=== PATIENT | female | born 1970 | race American Indian/Alaskan Native ===

== ENCOUNTER 2017-05-01 06:21 | Outpatient (CLI) | payer BC ==
--- NOTE | 2017-05-01 15:24 | Mammography Report ---
BILATERAL DIGITAL SCREENING MAMMOGRAM with CAD and WITH 3-D TOMOSYNTHESIS: 05/01/17 CLINICAL: Routine screening. COMPARISON:10/11/15 and 04/15/14 FINDINGS: There are bilateral scattered fibroglandular densities.Bilateral asymmetries on the tomosynthesis views require additional imaging. They are not identified on conventional views. No mass, architectural distortion or suspicious calcifications. IMPRESSION: Bilateral parenchymal asymmetries requiring additional imaging. BI-RADS CATEGORY: 0--Needs Additional Imaging RECOMMENDATION: Recall for bilateral lateralmedial views and bilateral breast ultrasound. COMMENT: Patient follow-up letters are generated by our [employer] application.
== END 2017-05-01 06:22 | disposition home or self-care (01) ==
LOC: MAMMO 06:21
PROVIDERS: ATTEND Internal Medicine
DX: Z12.31 Encounter for screening mammogram for malignant neoplasm of breast (principal)
CPT/HCPCS: 77063; G0202; 77067

== ENCOUNTER 2017-05-14 09:55 | Outpatient (CLI) | payer BC ==
--- NOTE | 2017-05-14 13:30 | Ultrasound Report ---
Right mammogram and bilateral breast ultrasound: The patient is recalled for bilateral nodularity identified on recent total mammogram. Whole breast lateral compression images are obtained as requested. Breast pattern is symmetric and that of intermediate fibroglandular density with no focal nodules identified and no significant change compared to the 2-D images obtained with the total mammogram. Bilateral whole breast ultrasound demonstrates multiple subcentimeter sized circumscribed hypodensities and echo lucencies bilaterally. There are approximately 8 identified in the right breast and 5 in the left breast. No suspicious characteristics are identified. No completely solid masses are noted. Impression: No significant mammogram findings. The ultrasound findings all have benign characteristics. Recommendation: Annual mammogram followup. BI-RADS CATEGORY: 2 = Benign ACR BI-RADS MAMMOGRAPHIC CODES: 0 = Needs additional imaging evaluation; 1 = Negative; 2 = Benign; 3 = Probably benign; 4 = Suspicious; 5 = Malignant; 6 = Known biopsy-proven malignancy COMMENT: 1. Dense breast tissue, i.e., adenosis, fibrocystic changes, etc., may obscure an underlying neoplasm. 2. Approximately 10% of cancers are not detected with mammography. 3. A negative mammography report should not delay biopsy if a clinically suspicious mass is present.
== END 2017-05-14 09:56 | disposition home or self-care (01) ==
LOC: MAMMO 09:55
PROVIDERS: ATTEND Nurse Practitioner Family
DX: R92.8 Other abnormal and inconclusive findings on diagnostic imaging of breast (principal)
CPT/HCPCS: 77066

== ENCOUNTER 2017-06-05 07:27 | Outpatient (CLI) | payer BC ==
--- NOTE | 2017-06-05 12:52 | Ultrasound Report ---
ULTRASOUND TRANSVAGINAL HISTORY: Intramural labral myoma of the uterus. COMPARISON: 06/12/15. TECHNIQUE: Transabdominal and transvaginal ultrasound with color doppler interrogation. FINDINGS: Uterus: Anteverted. The uterus measures 13.3 x 9.6 x 9.9 cm. 4 fibroids are identified on today's exam. A large noncalcified submucosal fibroid in the uterine fundus measures 4.4 x 4.6 cm. A 2.7 x 2.0 cm intramural fibroid is identified in the posterior wall. A 4.7 x 3.9 cm submucosal fibroid is identified in the right lateral wall. A 6.2 x 4.3 cm exophytic fibroid is identified from the left lateral wall. Endometrium: The endometrium is displaced by the uterine fibroids but appears normal thickness measuring 8.5 mm. Right ovary: 4.1 x 1.6 x 1.9 cm. There are 2 complex cysts in the right ovary measuring 1.5 cm and 1.8 cm. Left ovary: Not visualized. No pelvic fluid or mass is identified. Normal color doppler interrogation. IMPRESSION: Uterine fibroid disease as described above. Complex cysts in the right ovary.
== END 2017-06-05 07:28 | disposition home or self-care (01) ==
LOC: US 07:27
PROVIDERS: ATTEND Obstetrics & Gynecology
DX: D25.1 Intramural leiomyoma of uterus (principal); D25.0 Submucous leiomyoma of uterus; N83.291 Other ovarian cyst, right side
CPT/HCPCS: 76830

== ENCOUNTER 2018-02-15 08:08 | Inpatient (IN) | payer BC ==
--- NOTE | 2018-02-15 09:18 | XRay Report ---
FINAL REPORT EXAM: XR CHEST ROUTINE 2V HISTORY: chest pain TECHNIQUE: Chest, 2 views PRIORS: None. FINDINGS: The heart size is normal. Mediastinal contours are normal. Pulmonary vasculature is not congested. The lungs are clear. There are no pleural effusion seen. There is no evidence of pneumothorax. IMPRESSION: There is no acute abnormality identified.
[2018-02-15 10:31] LABS: Basophils % (Auto) 0.6 % (0.0-1.8); Eosinophils # (Auto) 0.1 K/mm3 (0.0-0.4); Eosinophils % (Auto) 1.3 % (0.0-4.3); Hematocrit 31.9 % (30.3-42.9); Hemoglobin 9.9 gm/dl (10.1-14.3); Lymphocytes # (Auto) 1.9 K/mm3 (1.2-5.4); Lymphocytes % (Auto) 25.2 % (13.4-35.0); Mean Corpuscular HGB Conc 31 % (30-34); Mean Corpuscular Volume 71 fl (79-97); Monocytes # (Auto) 0.8 K/mm3 (0.0-0.8); Monocytes % (Auto) 10.4 % (0.0-7.3); Platelet Count 328 K/mm3 (140-440); Red Blood Count 4.47 M/mm3 (3.65-5.03); Red Cell Distribution Width 18.6 % (13.2-15.2)
[2018-02-15 10:32] LABS: Mean Corpuscular Hemoglobin 22 pg (28-32)
[2018-02-15 10:44] LABS: INR 0.94 (0.87-1.13)
[2018-02-15 10:45] LABS: Partial Thromboplastin Time 24.7 Sec. (24.2-36.6)
[2018-02-15 10:54] LABS: Creatine Kinase MB 2.2 ng/mL (0.0-4.0)
[2018-02-15 10:57] LABS: Alanine Aminotransferase 36 units/L (7-56); Albumin 4.1 g/dL (3.9-5); BUN/Creatinine Ratio 28; Blood Urea Nitrogen 11 mg/dL (7-17); Calcium 8.9 mg/dL (8.4-10.2); Hemolysis Index 3
[2018-02-15 10:59] LABS: Bilirubin,Direct < 0.2 mg/dL (0-0.2)
[2018-02-15] MEDS ORDERED: ZOFRAN IV PRN (12:31)
[2018-02-15] MEDS ORDERED: SODIUM CHLORIDE FLUSH SYRINGE 10 ML IV PRN ×2 (12:31)
[2018-02-15] MEDS ORDERED: MORPHINE IV PRN (12:31)
[2018-02-15] MEDS ORDERED: BABY ASPIRIN PO STA (12:31)
[2018-02-15] MEDS ORDERED: NITROSTAT SL PRN (12:31)
[2018-02-15] MEDS ORDERED: TYLENOL PO PRN (12:31)
[2018-02-15] MEDS ORDERED: PROVENTIL IH PRN (12:31)
--- NOTE | 2018-02-15 12:36 | Emergency Department Report ---
ED General Adult HPI - General Chief complaint: Chest Pain Stated complaint: TIGHTNESS OF CHEST Time Seen by Provider: 02/15/18 09:31 Source: patient Mode of arrival: Ambulatory Limitations: No Limitations - History of Present Illness Initial comments: 48-year-old female with no prior history of similar events. Patient stated that yesterday she was eating chicken. Shortly thereafter she passed out. Her mother heard a thud and came from another room. She found her on the floor breathing heavy. She presumed that she might be choking so she rolled her over and rested her back. The patient did vomit some yellow material. They do not report dislodging a food bolus per se. Subsequently the patient complains of heaviness in her anterior/substernal chest with somewhat radiates to her throat. She states that she does not remember choking specifically. She has never had a prior syncopal episode or evaluation for chest pain. She denies family history of coronary artery disease or venous thromboembolism. -: Sudden Location: chest Radiation: neck Quality: other (heaviness) Consistency: constant Improves with: none Worsens with: none Associated Symptoms: denies other symptoms - Related Data Allergies Allergy/AdvReac Type Severity Reaction Status Date / Time No Known Allergies Allergy Unverified 03/04/14 07:06 ED Review of Systems ROS: Stated complaint: TIGHTNESS OF CHEST Other details as noted in HPI Constitutional: denies: chills, fever Eyes: denies: eye pain, eye discharge, vision change ENT: denies: ear pain, throat pain Respiratory: denies: cough, shortness of breath, wheezing Cardiovascular: chest pain, syncope. denies: palpitations Endocrine: no symptoms reported Gastrointestinal: denies: abdominal pain, nausea, diarrhea Genitourinary: denies: urgency, dysuria, discharge Musculoskeletal: denies: back pain, joint swelling, arthralgia Skin: denies: rash, lesions Neurological: denies: headache, weakness, paresthesias Psychiatric: denies: anxiety, depression Hematological/Lymphatic: denies: easy bleeding, easy bruising ED Past Medical Hx - Past Medical History Hx Hypertension: Yes - Surgical History Hx Cholecystectomy: Yes - Social History Smoking Status: Never Smoker Substance Use Type: Alcohol ED Physical Exam - General Limitations: No Limitations General appearance: alert, in no apparent distress - Head Head exam: Present: atraumatic, normocephalic - Eye Eye exam: Present: normal appearance. Absent: scleral icterus - ENT ENT exam: Present: mucous membranes moist - Neck Neck exam: Present: normal inspection. Absent: tenderness, meningismus - Respiratory Respiratory exam: Present: normal lung sounds bilaterally. Absent: respiratory distress - Cardiovascular Cardiovascular Exam: Present: regular rate, normal rhythm. Absent: systolic murmur, diastolic murmur, rubs, gallop - GI/Abdominal GI/Abdominal exam: Present: soft, normal bowel sounds. Absent: distended, tenderness, guarding, rebound, rigid - Extremities Exam Extremities exam: Present: normal inspection, normal capillary refill. Absent: joint swelling, calf tenderness - Back Exam Back exam: Present: normal inspection - Neurological Exam Neurological exam: Present: alert, oriented X3, CN II-XII intact. Absent: motor sensory deficit - Psychiatric Psychiatric exam: Present: normal affect, normal mood - Skin Skin exam: Present: warm, dry, intact, normal color. Absent: rash ED Course Vital Signs 02/15/18 02/15/18 02/15/18 08:23 08:39 08:45 Temperature 98.9 F Pulse Rate 82 78 79 Respiratory 16 15 16 Rate Blood Pressure 178/79 159/84 O2 Sat by Pulse 98 97 Oximetry 02/15/18 02/15/18 02/15/18 09:00 09:15 09:30 Temperature Pulse Rate 75 73 74 Respiratory 16 18 26 H Rate Blood Pressure 167/91 149/85 141/83 O2 Sat by Pulse 97 96 98 Oximetry 02/15/18 09:45 Temperature Pulse Rate 86 Respiratory 21 Rate Blood Pressure 149/92 O2 Sat by Pulse 98 Oximetry - Reevaluation(s) Reevaluation #1: Patient complains of some persistent chest heaviness although she states it has improved. Under the circumstances with uncertain syncope and persistent chest pain, she is admitted by Dr. Muhammad for further care and evaluation. It is also noted that she has an elevated CK. This will be repeated and IV fluid will be initiated. 02/15/18 12:35 ED Medical Decision Making - Lab Data Result diagrams: 02/15/18 10:14 02/15/18 10:14 - EKG Data -: EKG Interpreted by Mi EKG shows normal: sinus rhythm, axis, intervals, QRS complexes, ST-T waves Rate: normal - EKG Data Interpretation: no acute changes, normal EKG - Radiology Data Radiology results: report reviewed Critical care attestation.: If time is entered above; I have spent that time in minutes in the direct care of this critically ill patient, excluding procedure time. ED Disposition Clinical Impression: Syncope Qualifiers: Syncope type: unspecified Qualified Code(s): R55 - Syncope and collapse Chest pain Qualifiers: Chest pain type: unspecified Qualified Code(s): R07.9 - Chest pain, unspecified Anemia Qualifiers: Anemia type: unspecified type Qualified Code(s): D64.9 - Anemia, unspecified Rhabdomyolysis Qualifiers: Rhabdomyolysis type: traumatic Encounter type: initial encounter Qualified Code (s): T79.6XXA - Traumatic ischemia of muscle, initial encounter Disposition: 09 OP ADMIT IP TO THIS HOSP Is pt being admited?: Yes Does the pt Need Aspirin: Yes Condition: Stable Instructions: Syncope (ED), Chest Pain (ED) Referrals: PRIMARY CARE, [Primary Care Provider] - 3-5 Days Time of Disposition: 12:37
[2018-02-15] MEDS ORDERED: BABY ASPIRIN PO ONE ×2 (12:37→20:00)
[2018-02-15] MEDS ORDERED: NACL 0.9% 1000 ML 1,000 ML IV ONE (12:38)
--- NOTE | 2018-02-15 12:59 | History and Physical Report ---
History of Present Illness Chief complaint: My chest hurts History of present illness: 48 YO Female with HTN presents to ED for evaluation. Pt states that she has experienced pain in her chest and loss of consciousness. Pt states that shortly after eating dinner yesterday she lost consciousness. Pt was found down and unresponsive by her mother, who presumed that she was choking and performed a variation of the Heimlich Maneuver. The patient was reported to have vomited yellow material. Pt subsequently complains of chest pain. Pain is substernal, radiates to her throat, not worsened with exertion, or relieved with rest. Pt acknowledges shortness of breath, but denies fever, chills, Palpitations, NVD, Trauma, Skin rash, Productive cough, recent ill contacts, prolonged travel/ immobility, unilateral leg swelling, calf pain, hemoptysis. Pt seen and evaluated in ED and found to have symptoms consistent with ACS, and Diastolic CHF. Pt admitted to telemetry. Cardiology consulted in ED. Past History Past Medical History: hypertension Past Surgical History: cholecystectomy Social history: . denies: smoking, alcohol abuse, prescription drug abuse Family history: hypertension Medications and Allergies Allergies Allergy/AdvReac Type Severity Reaction Status Date / Time No Known Allergies Allergy Verified 02/15/18 12:36 Active Meds: Active Medications Acetaminophen (Tylenol) 650 mg PO Q4H PRN PRN Reason: Pain MILD(1-3)/Fever >100.5/IRIZARRY Albuterol (Proventil) 2.5 mg IH Q4H PRN PRN Reason: Shortness Of Breath Famotidine (Pepcid) 20 mg PO BID JULIA Sodium Chloride (Nacl 0.9% 1000 Ml) 1,000 mls @ 999 mls/hr IV BOLUS ONE Stop: 02/15/18 13:38 Morphine Sulfate (Morphine) 2 mg IV Q4H PRN PRN Reason: Pain, Moderate (4-6) if NPO Nitroglycerin (Nitrostat) 0.4 mg SL Q5M PRN PRN Reason: Chest Pain Ondansetron HCl (Zofran) 4 mg IV Q8H PRN PRN Reason: Nausea And Vomiting Sodium Chloride (Sodium Chloride Flush Syringe 10 Ml) 10 ml IV BID JULIA Sodium Chloride (Sodium Chloride Flush Syringe 10 Ml) 10 ml IV PRN PRN PRN Reason: LINE FLUSH Review of Systems Constitutional: no weight loss, no weight gain, no fever, no chills Ears, nose, mouth and throat: no ear pain, no ear discharge, no tinnitis, no decreased hearing, no nose pain, no nasal congestion Breasts: no change in shape, no swelling, no mass Cardiovascular: chest pain, syncope, no orthopnea, no palpitations, no rapid/ irregular heart beat, no edema, no lightheadedness, no dyspnea on exertion, no claudication, no phlebitis Respiratory: no cough, no cough with sputum, no excessive sputum, no hemoptysis Gastrointestinal: no nausea, no vomiting, no diarrhea, no constipation, no change in bowel habits Genitourinary Female: no pelvic pain, no flank pain, no menorrhagia, no dysuria , no urinary frequency Rectal: no pain, no incontinence, no bleeding Musculoskeletal: no neck stiffness, no neck pain, no shooting arm pain, no arm numbness/tingling, no low back pain, no shooting leg pain Integumentary: no rash, no pruritis, no redness, no sores, no wounds Neurological: no paralysis, no weakness, no parathesias, no numbness, no tingling, no seizures, no syncope Psychiatric: no anxiety, no memory loss, no change in sleep habits, no sleep disturbances, no insomnia, no hypersomnia, no change in appetite, no change in libido Endocrine: no cold intolerance, no heat intolerance, no polyphagia, no excessive thirst, no polydipsia, no polyuria Hematologic/Lymphatic: no easy bruising, no easy bleeding, no lymphadenopathy, no lymphedema Allergic/Immunologic: no urticaria, no allergic rhinitis, no wheezing, no persistent infections, no anaphylaxis, no angioedema Exam - Constitutional Vitals: Temp Pulse Resp BP Pulse Ox 98.9 F 86 21 149/92 98 02/15/18 08:23 02/15/18 09:45 02/15/18 09:45 02/15/18 09:45 02/15/18 09:45 General appearance: Present: mild distress - EENT Eyes: Present: PERRL ENT: hearing intact, clear oral mucosa - Neck Neck: Present: supple, normal ROM - Respiratory Respiratory effort: normal Respiratory: bilateral: CTA - Cardiovascular Heart Sounds: Present: S1 & S2. Absent: rub, click - Extremities Extremities: pulses symmetrical, No edema Peripheral Pulses: within normal limits - Abdominal General gastrointestinal: Present: soft, non-tender, non-distended, normal bowel sounds Female genitourinary: Present: normal - Integumentary Integumentary: Present: clear, warm, dry - Musculoskeletal Musculoskeletal: gait normal, strength equal bilaterally - Psychiatric Psychiatric: appropriate mood/affect, intact judgment & insight - Neurologic Neurologic: CNII-XII intact, moves all extremities Results - Labs CBC & Chem 7: 02/15/18 10:14 02/15/18 10:14 Labs: Abnormal lab results 02/15/18 02/15/18 Range/Units 10:14 10:14 Hgb 9.9 L (10.1-14.3) gm/dl MCV 71 L (79-97) fl MCH 22 L (28-32) pg RDW 18.6 H (13.2-15.2) % [place] % (Auto) 10.4 H (0.0-7.3) % Creatinine 0.4 L (0.7-1.2) mg/dL Total Creatine Kinase 918 H (30-135) units/L Assessment and Plan - Patient Problems (1) ACS (acute coronary syndrome) Current Visit: Yes Status: Acute Plan to address problem: Admit to telemetry: Serial cardiac enzymes, ekg, stress test, bnp, D dimer, cardiology consulted in ED, morphine, supplemental oxygen, nitro, aspirin. (2) Diastolic CHF Current Visit: Yes Status: Acute Qualifiers: Heart failure chronicity: acute Qualified Code(s): I50.31 - Acute diastolic (congestive) heart failure Plan to address problem: Admit to telemetry, echo, cardiology consulted in ED, strict I/O, monitor uop q shift, daily weight, chest x ray. (3) Rhabdomyolysis Current Visit: Yes Status: Acute Qualifiers: Rhabdomyolysis type: traumatic Encounter type: initial encounter Qualified Code(s): T79.6XXA - Traumatic ischemia of muscle, initial encounter (4) Syncope Current Visit: Yes Status: Acute Qualifiers: Syncope type: unspecified Qualified Code(s): R55 - Syncope and collapse Plan to address problem: CT Head, neuro checks, (5) DVT prophylaxis Current Visit: Yes Status: Acute Plan to address problem: SCD to BLE while in bed.
[2018-02-15 13:07] LABS: Creatine Kinase MB 2.2 ng/mL (0.0-4.0)
[2018-02-15 13:09] LABS: Chol/HDL Ratio 2.75 %; HDL Cholesterol 74 mg/dL (40-59); LDL Cholesterol,Direct 139 mg/dL (50-130)
--- NOTE | 2018-02-15 15:18 | Cat Scan Report ---
FINAL REPORT PROCEDURE: CT HEAD/BRAIN WO CON TECHNIQUE: Computerized tomography of the head was performed without contrast material. HISTORY: syncope COMPARISON: No prior studies are available for comparison. FINDINGS: Brain: Brain density appears normal. No evidence of intracranial hemorrhage. No parenchymal hemorrhage, mass lesions or mass effect are seen. No abnormal extraxial fluid collects or masses are seen. Ventricles: Ventricles are normal size and are midline. Bone Windows: No evidence of skull fracture. Paranasal sinuses: There is mucosal thickening and an air-fluid level in the sphenoid sinus. Visualized portions of the paranasal sinuses otherwise are clear. Mastoid air cells: Clear IMPRESSION: Negative unenhanced CT scan of the brain. Findings consistent with acute sphenoid sinusitis.
[2018-02-15] MEDS: PEPCID PO SCH ×2 (19:16→21:15)
[2018-02-15] MEDS: SODIUM CHLORIDE FLUSH SYRINGE 10 ML IV SCH (21:15)
[2018-02-16] MEDS: PEPCID PO SCH (10:04)
--- NOTE | 2018-02-16 10:42 | Progress Note ---
Assessment and Plan Assessment and plan: My chest hurts History of present illness: 48 YO Female with HTN presents to ED for evaluation. Pt states that she has experienced pain in her chest and loss of consciousness. Pt states that shortly after eating dinner yesterday she lost consciousness. Pt was found down and unresponsive by her mother, who presumed that she was choking and performed a variation of the Heimlich Maneuver. The patient was reported to have vomited yellow material. Pt subsequently complains of chest pain. Pain is substernal, radiates to her throat, not worsened with exertion, or relieved with rest. Pt acknowledges shortness of breath, but denies fever, chills, Palpitations, NVD, Trauma, Skin rash, Productive cough, recent ill contacts, prolonged travel/ immobility, unilateral leg swelling, calf pain, hemoptysis. Pt seen and evaluated in ED and found to have symptoms consistent with ACS, and Diastolic CHF. Pt admitted to telemetry. Cardiology consulted in ED. Past History Past Medical History: hypertension (1) ACS (acute coronary syndrome) Current Visit: Yes Status: Acute Plan to address problem: Admit to telemetry: Serial cardiac enzymes, ekg, stress test, bnp, D dimer, cardiology consulted in ED, morphine, supplemental oxygen, nitro, aspirin. (2) Diastolic CHF Current Visit: Yes Status: Acute Qualifiers: Heart failure chronicity: acute Qualified Code(s): I50.31 - Acute diastolic (congestive) heart failure Plan to address problem: Admit to telemetry, echo, cardiology consulted in ED, strict I/O, monitor uop q shift, daily weight, chest x ray. (3) Rhabdomyolysis Current Visit: Yes Status: Acute Qualifiers: Rhabdomyolysis type: traumatic Encounter type: initial encounter Qualified Code(s): T79.6XXA - Traumatic ischemia of muscle, initial encounter (4) Syncope Current Visit: Yes Status: Acute Qualifiers: Syncope type: unspecified Qualified Code(s): R55 - Syncope and collapse Plan to address problem: CT Head, neuro checks, (5) DVT prophylaxis Current Visit: Yes Status: Acute Plan to address problem: SCD to BLE while in bed. History Interval history: Review of systems Constitutional: No fevers, no malaise, no joint pains CVS: No chest pain, no orthopnea, no dyspnea on exertion, no pedal edema GI: No abdominal pain, no diarrhea, no vomiting, no constipation Respiratory: No shortness of breath, no wheezing, no coughing Hospitalist Physical - Physical exam Narrative exam: General.: Appears well, no distress, nontoxic HEENT: Moist mucous membranes, extraocular muscles intact, no lymphadenopathy Neck: supple Cardiac: S1-S2 heard Lungs: clear to auscultation bilaterally Abdomen: soft , nontender, nondistended, bowel sounds positive Extremities: no edema clubbing or cyanosis Skin: no rash or lesions Neurologic: no gross focal deficits Psych: appropriate behavior, appropriate mood, corporative, judgment intact - Constitutional Vitals: Temp Pulse Resp BP Pulse Ox 98.0 F 66 18 157/78 98 02/16/18 07:27 02/16/18 09:38 02/16/18 09:38 02/16/18 07:27 02/16/18 09:38 General appearance: Present: mild distress Results - Labs CBC & Chem 7: 02/15/18 10:14 02/15/18 10:14 Labs: Laboratory Last Values WBC 7.5 K/mm3 (4.5-11.0) 02/15/18 10:14 RBC 4.47 M/mm3 (3.65-5.03) 02/15/18 10:14 Hgb 9.9 gm/dl (10.1-14.3) L 02/15/18 10:14 Hct 31.9 % (30.3-42.9) 02/15/18 10:14 MCV 71 fl (79-97) L 02/15/18 10:14 MCH 22 pg (28-32) L 02/15/18 10:14 MCHC 31 % (30-34) 02/15/18 10:14 RDW 18.6 % (13.2-15.2) H 02/15/18 10:14 Plt Count 328 K/mm3 (140-440) 02/15/18 10:14 Lymph % (Auto) 25.2 % (13.4-35.0) 02/15/18 10:14 [place] % (Auto) 10.4 % (0.0-7.3) H 02/15/18 10:14 Eos % (Auto) 1.3 % (0.0-4.3) 02/15/18 10:14 Baso % (Auto) 0.6 % (0.0-1.8) 02/15/18 10:14 Lymph # 1.9 K/mm3 (1.2-5.4) 02/15/18 10:14 [place] # 0.8 K/mm3 (0.0-0.8) 02/15/18 10:14 Eos # 0.1 K/mm3 (0.0-0.4) 02/15/18 10:14 Baso # 0.0 K/mm3 (0.0-0.1) 02/15/18 10:14 Seg Neutrophils % 62.5 % (40.0-70.0) 02/15/18 10:14 Seg Neutrophils # 4.7 K/mm3 (1.8-7.7) 02/15/18 10:14 PT 13.1 Sec. (12.2-14.9) 02/15/18 10:14 INR 0.94 (0.87-1.13) 02/15/18 10:14 APTT 24.7 Sec. (24.2-36.6) 02/15/18 10:14 D-Dimer 172.65 ng/mlDDU (0-234) 02/15/18 10:14 Sodium 139 mmol/L (137-145) 02/15/18 10:14 Potassium 4.0 mmol/L (3.6-5.0) 02/15/18 10:14 Chloride 101.2 mmol/L (98-107) 02/15/18 10:14 Carbon Dioxide 26 mmol/L (22-30) 02/15/18 10:14 Anion Gap 16 mmol/L 02/15/18 10:14 BUN 11 mg/dL (7-17) 02/15/18 10:14 Creatinine 0.4 mg/dL (0.7-1.2) L 02/15/18 10:14 Estimated GFR > 60 ml/min 02/15/18 10:14 BUN/Creatinine Ratio 28 % 02/15/18 10:14 Glucose 99 mg/dL (65-100) 02/15/18 10:14 Calcium 8.9 mg/dL (8.4-10.2) 02/15/18 10:14 Total Bilirubin 0.90 mg/dL (0.1-1.2) 02/15/18 10:14 Direct Bilirubin < 0.2 mg/dL (0-0.2) 02/15/18 10:14 Indirect Bilirubin 0.7 mg/dL 02/15/18 10:14 AST 35 units/L (5-40) 02/15/18 10:14 ALT 36 units/L (7-56) 02/15/18 10:14 Alkaline Phosphatase 53 units/L (35-129) 02/15/18 10:14 Total Creatine Kinase 154 units/L (30-135) H 02/15/18 12:33 CK-MB (CK-2) 2.2 ng/mL (0.0-4.0) 02/15/18 12:33 CK-MB (CK-2) Rel Index 0.2 (0-4) 02/15/18 10:14 Troponin T < 0.010 ng/mL (0.00-0.029) 02/15/18 18:57 NT-Pro-B Natriuret Pep 23.10 pg/mL (0-450) 02/15/18 12:33 Total Protein 7.0 g/dL (6.3-8.2) 02/15/18 10:14 Albumin 4.1 g/dL (3.9-5) 02/15/18 10:14 Albumin/Globulin Ratio 1.4 % 02/15/18 10:14 Triglycerides 74 mg/dL (2-149) 02/15/18 12:42 Cholesterol 204 mg/dL (50-199) H 02/15/18 12:42 LDL Cholesterol Direct 139 mg/dL (50-130) H 02/15/18 12:42 HDL Cholesterol 74 mg/dL (40-59) H 02/15/18 12:42 Cholesterol/HDL Ratio 2.75 % 02/15/18 12:42 HCG, Qual Negative (Negative) 02/16/18 06:32
[2018-02-16 12:08] VITALS: BP 130/73
--- NOTE | 2018-02-16 12:17 | Discharge Summary ---
Providers - Providers Date of Admission: 02/15/18 13:37 Attending physician: LUNA KLEIN MD 02/15/18 Consult to Cardiac Rehabilitation [CONS] Routine Reason For Exam: Phase I 02/15/18 12:31 Consult to Cardiology [CONS] Routine Consulting Provider: LUCIA DOMINGUEZ Reason For Exam: acs Primary care physician: [employer] Hospitalization Condition: Stable Hospital course: My chest hurts History of present illness: 48 YO Female with HTN presents to ED for evaluation. Pt states that she has experienced pain in her chest and loss of consciousness. Pt states that shortly after eating dinner yesterday she lost consciousness. Pt was found down and unresponsive by her mother, who presumed that she was choking and performed a variation of the Heimlich Maneuver. The patient was reported to have vomited yellow material. Pt subsequently complains of chest pain. Pain is substernal, radiates to her throat, not worsened with exertion, or relieved with rest. Pt acknowledges shortness of breath, but denies fever, chills, Palpitations, NVD, Trauma, Skin rash, Productive cough, recent ill contacts, prolonged travel/ immobility, unilateral leg swelling, calf pain, hemoptysis. Pt seen and evaluated in ED and found to have symptoms consistent with ACS, and Diastolic CHF. Pt admitted to telemetry. Cardiology consulted in ED. Past History Past Medical History: hypertension (1) ACS (acute coronary syndrome) Current Visit: Yes Status: Acute Plan to address problem: Admit to telemetry: Serial cardiac enzymes, ekg, stress test, bnp, D dimer, cardiology consulted in ED, morphine, supplemental oxygen, nitro, aspirin. (2) Diastolic CHF Current Visit: Yes Status: Acute Qualifiers: Heart failure chronicity: acute Qualified Code(s): I50.31 - Acute diastolic (congestive) heart failure Plan to address problem: Admit to telemetry, echo, cardiology consulted in ED, strict I/O, monitor uop q shift, daily weight, chest x ray. (3) Rhabdomyolysis Current Visit: Yes Status: Acute Qualifiers: Rhabdomyolysis type: traumatic Encounter type: initial encounter Qualified Code(s): T79.6XXA - Traumatic ischemia of muscle, initial encounter (4) Syncope Current Visit: Yes Status: Acute Qualifiers: Syncope type: unspecified Qualified Code(s): R55 - Syncope and collapse Plan to address problem: CT Head, neuro checks, (5) DVT prophylaxis Current Visit: Yes Status: Acute Plan to address problem: SCD to BLE while in bed. Disposition: DC-01 TO HOME OR SELFCARE Time spent for discharge: 33 minutes Core Measure Documentation - Palliative Care Palliative Care/ Comfort Measures: Not Applicable - Core Measures Any of the following diagnoses?: none Exam - Constitutional Vitals: Temp Pulse Resp BP Pulse Ox 98.0 F 82 18 130/73 99 02/16/18 12:04 02/16/18 12:04 02/16/18 12:04 02/16/18 12:04 02/16/18 12:04 General appearance: Present: no acute distress, well-nourished - EENT Eyes: Present: PERRL ENT: hearing intact, clear oral mucosa - Neck Neck: Present: supple, normal ROM - Respiratory Respiratory effort: normal Respiratory: bilateral: CTA - Cardiovascular Heart Sounds: Present: S1 & S2. Absent: rub, click - Extremities Extremities: pulses symmetrical, No edema Peripheral Pulses: within normal limits - Abdominal General gastrointestinal: Present: soft, non-tender, non-distended, normal bowel sounds Female genitourinary: Present: normal - Integumentary Integumentary: Present: clear, warm, dry - Musculoskeletal Musculoskeletal: gait normal, strength equal bilaterally - Psychiatric Psychiatric: appropriate mood/affect, intact judgment & insight - Neurologic Neurologic: CNII-XII intact, moves all extremities Plan Follow up with: PRIMARY CARE, [Primary Care Provider] - 3-5 Days Prescriptions: Pantoprazole [Protonix TAB] 20 mg PO QDAY #30 tablet.
[2018-02-16] MEDS: SODIUM CHLORIDE FLUSH SYRINGE 10 ML IV SCH (12:46)
--- NOTE | 2018-02-16 13:39 | Consultation ---
History of Present Illness Consult date: 02/16/18 Consult reason: syncope History of present illness: The patient is a 48-year-old woman with no past cardiac history, admitted with syncope. Syncope occurred at home, and followed an acute coughing spell which started while she was eating and apparently inadvertently aspirated some of her food. Her mother was in the next room at her coughing profusely, followed by the brief syncopal spell. The patient presented to this hospital and has so far undergone extensive cardiac workup initiated by the medical service. A 12-lead EKG was normal, no ischemic changes, an echocardiogram revealed normal left ventricle systolic function with ejection fraction 60-65%, no significant valvular lesions. In addition, she underwent a stress test with thallium imaging, during which she exercised for 9 minutes, no chest pain and no ST changes, thallium images normal. Past History Past Medical History: hypertension Past Surgical History: cholecystectomy Social history: . denies: smoking, alcohol abuse, prescription drug abuse Family history: hypertension Medications and Allergies Allergies Allergy/AdvReac Type Severity Reaction Status Date / Time No Known Allergies Allergy Verified 02/15/18 12:36 Home Medications Medication Instructions Recorded Confirmed Last Taken Type Pantoprazole [Protonix TAB] 20 mg PO QDAY #30 tablet. 02/16/18 Unknown Rx Active Meds: Active Medications Acetaminophen (Tylenol) 650 mg PO Q4H PRN PRN Reason: Pain MILD(1-3)/Fever >100.5/IRIZARRY Albuterol (Proventil) 2.5 mg IH Q4H PRN PRN Reason: Shortness Of Breath Famotidine (Pepcid) 20 mg PO BID [facility] Last Admin: 02/16/18 10:04 Dose: Not Given Morphine Sulfate (Morphine) 2 mg IV Q4H PRN PRN Reason: Pain, Moderate (4-6) if NPO Nitroglycerin (Nitrostat) 0.4 mg SL Q5M PRN PRN Reason: Chest Pain Ondansetron HCl (Zofran) 4 mg IV Q8H PRN PRN Reason: Nausea And Vomiting Sodium Chloride (Sodium Chloride Flush Syringe 10 Ml) 10 ml IV BID [facility] Last Admin: 02/16/18 12:46 Dose: 10 ml Sodium Chloride (Sodium Chloride Flush Syringe 10 Ml) 10 ml IV PRN PRN PRN Reason: LINE FLUSH Review of Systems Cardiovascular: syncope, no chest pain, no orthopnea, no palpitations, no rapid/ irregular heart beat, no edema, no lightheadedness, no shortness of breath Physical Examination Vital Signs Temp Pulse Resp BP Pulse Ox 98.9 F 82 16 178/79 98 02/15/18 08:23 02/15/18 08:23 02/15/18 08:23 02/15/18 08:23 02/15/18 08:23 General appearance: no acute distress HEENT: Positive: PERRL Neck: Positive: neck supple Cardiac: Positive: Reg Rate and Rhythm Lungs: Positive: clear to auscultation Neuro: Positive: Grossly Intact Abdomen: Positive: Soft Female genitourinary: deferred Skin: Positive: Clear Extremities: Absent: edema Results 02/15/18 10:14 02/15/18 10:14 EKG interpretations - Telemetry EKG Rhythm: Sinus Rhythm Assessment and Plan - Patient Problems (1) Syncope Current Visit: Yes Status: Acute Qualifiers: Syncope type: unspecified Qualified Code(s): R55 - Syncope and collapse Plan to address problem: Patient's episode of syncope is clearly a vagal reaction to the acute coughing spell following aspiration of food material. Cardiac evaluation with serial ECGs, troponin levels, echocardiogram and stress test with thallium imaging all negative. No further cardiac workup is indicated. (2) Hypertension Current Visit: Yes Status: Acute Plan to address problem: The patient has manifested the persistent hypertension, and hypertension is listed on her history of medical problems, but no record of prior antihypertensive therapy. She will benefit from anti-hypertensive therapy, suggest losartan 50 mg daily with close outpatient follow-up.
[2018-02-16] MEDS ORDERED: COZAAR PO SCH (14:00)
--- NOTE | 2018-02-17 01:59 | Treadmill Report ---
THALLIUM STRESS TEST LEFT VENTRICLE: Left ventricular chamber size is within normal spread. Perfusion study demonstrates homogeneous uptake of the tracer in all segments, no significant perfusion defects identified. Gated analysis demonstrates normal left ventricular systolic function, ejection fraction 69%. CONCLUSION: Normal myocardial perfusion study. JOB# [id number] CA/NTS
== END 2018-02-16 13:40 | disposition home or self-care (01) | DRG 564 ==
LOC: ED 08:08 → EEVIPCON 08:08 → 4A 13:37
PROVIDERS: ADMIT Internal Medicine; ATTEND Internal Medicine
DX: T79.6XXA Traumatic ischemia of muscle, initial encounter (principal); I50.31 Acute diastolic (congestive) heart failure; I24.9 Acute ischemic heart disease, unspecified; I11.0 Hypertensive heart disease with heart failure; R55 Syncope and collapse; D64.9 Anemia, unspecified; Z90.49 Acquired absence of other specified parts of digestive tract; Z82.49 Family history of ischemic heart disease and other diseases of the circulatory system; Z72.89 Other problems related to lifestyle
CPT/HCPCS: 36415; 70450; 71046; 78452; 80048; 80061; 80074; 82550; 82553; 83880; 84484; 84703; 85025; 85379; 85610; 85730; 93005; 93010; 93017; 93306; A9502

== ENCOUNTER 2018-02-25 11:08 | Outpatient (CLI) | payer BC ==
--- NOTE | 2018-03-02 09:58 | Magnetic Resonance Report ---
MR PELVIS WITH AND WITHOUT CONTRAST HISTORY: Pelvic pain, vaginal bleeding. TECHNIQUE: Multiple T1 and T2-weighted images were obtained with and without fat suppression. Post contrast T1 fat-sat imaging. COMPARISON: Pelvic ultrasound dated 06/05/17. FINDINGS: The uterus is enlarged and lobular consistent with fibroid disease. The uterus is anteverted and measures 15.4 x 15.7 x 10.6 cm. Approximately 7 fibroids are identified. The largest fibroid is an exophytic fibroid projecting from the left side of the uterine fundus into the left lower quadrant measuring 8.1 x 7.2 cm. This fibroid demonstrates minimal internal cystic change. A solid submucosal fibroid in the posterior wall measures 6.7 cm. A solid submucosal fibroid in the anterior fundus measures 5.5 cm. A solid 4.4 cm fibroid is noted in the lower left lateral wall. There are 3 smaller intramural fibroids near the uterine fundus measuring approximately 1 cm in diameter. The endometrial stripe appears normal thickness measuring approximately 6-8 mm in thickness. No endometrial lesion is appreciated. The cervix is unremarkable. The vaginal canal is within normal limits. The bladder and distal ureters are unremarkable. The left ovary is visualized and contains a 1.4 cm simple cyst. The right ovary is not clearly identified. No adnexal mass is appreciated. The visualized bowel loops within the pelvis are unremarkable. Small free pelvic fluid is noted. Following the administration of IV gadolinium, the previously noted uterine fibroids enhance similar to surrounding myometrium. IMPRESSION: Moderate to severe uterine fibroid disease as described.
== END 2018-02-25 11:09 | disposition home or self-care (01) ==
LOC: MRI 11:08
PROVIDERS: ATTEND Radiology Vascular & Interventional Radiology
DX: D25.0 Submucous leiomyoma of uterus (principal); I10 Essential (primary) hypertension; Z90.49 Acquired absence of other specified parts of digestive tract
CPT/HCPCS: 72197; A9577

== ENCOUNTER 2018-05-25 09:23 | Emergency (ER) | payer BC ==
[2018-05-25] MEDS ORDERED: ZOFRAN ODT PO ONE (11:17)
[2018-05-25 11:44] LABS: Bacteria,Urine 1+ /HPF (Negative); Bilirubin,Urine NEG (Negative); Blood,Urine NEG (Negative); Color,Urine Amber (Yellow); Mucus,Urine 3+ /HPF
[2018-05-25 11:46] LABS: HCG Qualitative,Urine Negative (Negative)
[2018-05-25 12:06] LABS: Hemoglobin 9.8 gm/dl (10.1-14.3); Mean Corpuscular HGB Conc 31 % (30-34); Platelet Count 407 K/mm3 (140-440); Red Blood Count 4.88 M/mm3 (3.65-5.03)
[2018-05-25 12:08] LABS: Amphetamine Screen,Urine PRESUMPTIVE NEGATIVE; Benzodiazepines Screen,Urine PRESUMPTIVE NEGATIVE; Cannabinoid Screen,Urine PRESUMPTIVE NEGATIVE; Cocaine Screen,Urine PRESUMPTIVE NEGATIVE; Methadone Screen,Urine PRESUMPTIVE NEGATIVE; Opiate Screen,Urine PRESUMPTIVE NEGATIVE
[2018-05-25 12:09] LABS: Mean Corpuscular Volume 66 fl (79-97); Red Cell Distribution Width 20.3 % (13.2-15.2)
[2018-05-25 12:28] LABS: Alanine Aminotransferase 36 units/L (7-56); Albumin 4.3 g/dL (3.9-5); BUN/Creatinine Ratio 18; Blood Urea Nitrogen 9 mg/dL (7-17); Hemolysis Index 2
[2018-05-25] MEDS ORDERED: VISTARIL PO ONE (12:45)
--- NOTE | 2018-05-25 12:46 | Emergency Department Report ---
ED General Adult HPI - General Chief complaint: Neuro Symptoms/Deficit Stated complaint: NUMBNESS (L) SIDE FACE Time Seen by Provider: 05/25/18 10:44 Source: patient Mode of arrival: Ambulatory Limitations: No Limitations - History of Present Illness Initial comments: Patient is a 48-year-old -Citizen Of [place] female who comes in today complaining of left facial numbness. She states this has been going on for a week. She is postop hysterectomy on 04/28/2018. She states that she got to researching her symptoms and was afraid that she was having a stroke so she came to the ER today. She is taking only [id number] medications. She is neurologically intact, ambulatory, and tolerating by mouth. She is nontoxic and vital signs are stable. She is a patient of Dr. Ty -: days(s) Location: face Consistency: intermittent Improves with: none Worsens with: none Associated Symptoms: loss of appetite. denies: denies other symptoms, confusion, chest pain, cough, diaphoresis, fever/chills, headaches, malaise, nausea/vomiting, rash, seizure, shortness of breath, syncope, weakness Treatments Prior to Arrival: none - Related Data Home Medications Medication Instructions Recorded Confirmed Last Taken RX: hydroCHLOROthiazide [HCTZ] 25 mg PO DAILY 04/21/18 04/28/18 04/27/18 09:00 Previous Rx's Medication Instructions Recorded Last Taken Type RX: Pantoprazole [Protonix TAB] 20 mg PO QDAY #30 tablet. 02/16/18 04/26/18 09:00 Rx RX: amLODIPine [Norvasc] 10 mg PO DAILY #30 tab 02/16/18 04/28/18 04:00 Rx RX: Docusate Sodium [Colace CAP] 100 mg PO BID PRN #30 capsule 04/30/18 Unknown Rx hydrOXYzine PAMOATE [Vistaril] 25 mg PO Q6HR PRN #10 capsule 05/25/18 Unknown Rx Allergies Allergy/AdvReac Type Severity Reaction Status Date / Time No Known Allergies Allergy Verified 04/21/18 16:25 ED Review of Systems ROS: Stated complaint: NUMBNESS (L) SIDE FACE Other details as noted in HPI Comment: All other systems reviewed and negative Constitutional: denies: chills, fever Eyes: denies: eye pain ENT: denies: ear pain, throat pain Respiratory: denies: cough, orthopnea Cardiovascular: denies: chest pain Endocrine: denies: excessive sweating Gastrointestinal: nausea. denies: abdominal pain Genitourinary: denies: urgency Musculoskeletal: denies: back pain Skin: denies: lesions Neurological: weakness Psychiatric: denies: depression Hematological/Lymphatic: denies: easy bleeding ED Past Medical Hx - Past Medical History Previous Medical History?: Yes Hx Hypertension: Yes (x 2yrs) Hx Congestive Heart Failure: No Hx Diabetes: No Hx GERD: Yes Hx Asthma: No Hx COPD: No Hx HIV: No Additional medical history: fibroids - Surgical History Past Surgical History?: Yes Hx Cholecystectomy: Yes Additional Surgical History: hysterectomy - Social History Smoking Status: Never Smoker - Medications Home Medications: Home Medications Medication Instructions Recorded Confirmed Last Taken Type RX: Pantoprazole [Protonix TAB] 20 mg PO QDAY #30 tablet. 02/16/18 04/28/18 04/26/18 09:00 Rx RX: amLODIPine [Norvasc] 10 mg PO DAILY #30 tab 02/16/18 04/28/18 04/28/18 04:00 Rx RX: hydroCHLOROthiazide [HCTZ] 25 mg PO DAILY 04/21/18 04/28/18 04/27/18 09:00 History RX: Docusate Sodium [Colace CAP] 100 mg PO BID PRN #30 capsule 04/30/18 Unknown Rx hydrOXYzine PAMOATE [Vistaril] 25 mg PO Q6HR PRN #10 capsule 05/25/18 Unknown Rx ED Physical Exam - General Limitations: No Limitations General appearance: alert, in no apparent distress, anxious - Head Head exam: Present: atraumatic, normocephalic, normal inspection - Eye Eye exam: Present: normal appearance, PERRL, EOMI. Absent: scleral icterus, conjunctival injection, nystagmus, periorbital swelling, periorbital tenderness Pupils: Present: normal accommodation - ENT ENT exam: Present: normal exam, mucous membranes moist, TM's normal bilaterally, normal external ear exam - Neck Neck exam: Present: normal inspection, full ROM. Absent: tenderness, meningismus, lymphadenopathy, thyromegaly - Respiratory Respiratory exam: Present: normal lung sounds bilaterally. Absent: respiratory distress, wheezes, rales, rhonchi, stridor - Cardiovascular Cardiovascular Exam: Present: regular rate - GI/Abdominal GI/Abdominal exam: Present: soft, normal bowel sounds - Rectal Rectal exam: Present: deferred - Extremities Exam Extremities exam: Present: normal inspection, full ROM - Back Exam Back exam: Present: normal inspection, full ROM - Neurological Exam Neurological exam: Present: alert, oriented X3, CN II-XII intact, normal gait, reflexes normal. Absent: abnormal gait, motor sensory deficit - Psychiatric Psychiatric exam: Present: normal affect, normal mood, anxious - Skin Skin exam: Present: warm, dry, intact ED Course Vital Signs 05/25/18 05/25/18 05/25/18 09:30 09:56 13:22 Temperature 98.8 F Pulse Rate 91 H 94 H Respiratory 20 16 16 Rate Blood Pressure 162/91 Blood Pressure 169/92 [Left] O2 Sat by Pulse 100 100 Oximetry ED Medical Decision Making - Lab Data Result diagrams: 05/25/18 11:52 05/25/18 11:52 - EKG Data EKG shows normal: sinus rhythm Rate: normal - EKG Data When compared to previous EKG there are: no significant change Interpretation: no acute changes - Medical Decision Making no facial nerve palsy no focal neuro deficit, CN intact, no protator drift, equal strength and sensation of extremities. labs noted a/c anemia but improving tbili slight increase- added lipase no abd pain but has had some nausea with dec po intake pt appears anxious off pain meds because they made her fell funny long discussion with pt about what appears to be anxiety. she shares Dr Burgos told her the same recently. pt felt better after reassurance will dc home with dc plan of care and follow up with Dr Burgos Labs 05/25/18 05/25/18 05/25/18 11:52 11:52 Unknown WBC 8.2 RBC 4.88 Hgb 9.8 L Hct 32.0 MCV 66 L MCH 20 L MCHC 31 RDW 20.3 H Plt Count 407 Sodium 138 Potassium 3.7 Chloride 98.0 Carbon Dioxide 24 Anion Gap 20 BUN 9 Creatinine 0.5 L Estimated GFR > 60 BUN/Creatinine Ratio 18 Glucose 111 H Calcium 9.0 Total Bilirubin 1.70 H AST 42 H ALT 36 Alkaline Phosphatase 72 Total Protein 7.6 Albumin 4.3 Albumin/Globulin Ratio 1.3 Urine Color Gertrudis Urine Turbidity Slightly-cloudy Urine pH 6.0 Ur Specific [place] 1.026 Urine Protein 100 mg/dl Urine Glucose (UA) Neg Urine Ketones Tr Urine Blood Neg Urine Nitrite Neg Urine Bilirubin Neg Urine Urobilinogen 2.0 Ur Leukocyte Esterase Neg Urine WBC (Auto) 2.0 Urine RBC (Auto) 4.0 U Epithel Cells (Auto) 10.0 Urine Bacteria (Auto) 1+ Urine Mucus 3+ Urine HCG, Qual Negative Urine Opiates Screen Urine Methadone Screen Ur Barbiturates Screen Ur Phencyclidine Scrn Ur Amphetamines Screen U Benzodiazepines Scrn Urine Cocaine Screen U Marijuana (THC) Screen Drugs of Abuse Note 05/25/18 Unknown WBC RBC Hgb Hct MCV MCH MCHC RDW Plt Count Sodium Potassium Chloride Carbon Dioxide Anion Gap BUN Creatinine Estimated GFR BUN/Creatinine Ratio Glucose Calcium Total Bilirubin AST ALT Alkaline Phosphatase Total Protein Albumin Albumin/Globulin Ratio Urine Color Urine Turbidity Urine pH Ur Specific [place] Urine Protein Urine Glucose (UA) Urine Ketones Urine Blood Urine Nitrite Urine Bilirubin Urine Urobilinogen Ur Leukocyte Esterase Urine WBC (Auto) Urine RBC (Auto) U Epithel Cells (Auto) Urine Bacteria (Auto) Urine Mucus Urine HCG, Qual Urine Opiates Screen Presumptive negative Urine Methadone Screen Presumptive negative Ur Barbiturates Screen Presumptive negative Ur Phencyclidine Scrn Presumptive negative Ur Amphetamines Screen Presumptive negative U Benzodiazepines Scrn Presumptive negative Urine Cocaine Screen Presumptive negative U Marijuana (THC) Screen Presumptive negative Drugs of Abuse Note Disclamer - Differential Diagnosis bells v cva v urti v anxiety Critical care attestation.: If time is entered above; I have spent that time in minutes in the direct care of this critically ill patient, excluding procedure time. ED Disposition Clinical Impression: Anxiety Disposition: DC-01 TO HOME OR SELFCARE Is pt being admited?: No Does the pt Need Aspirin: No Condition: Stable Instructions: Anxiety (ED) Additional Instructions: REST HYDRATE WELL WITH WATER EAT SMALL FREQUENT LOW FAT MEALS A MULTIVITAMIN WITH IRON WILL HELP YOU HGB LEVELS TO CONTINUE TO IMPROVE ACTIVITY TOLERATED MEDS PER ROUTINE FOLLOW UP DR TY THIS WEEK LET THEM KNOW YOU WERE IN ER. FOLLOW UP PCP REFERRAL BELOW Prescriptions: hydrOXYzine PAMOATE [Vistaril] 25 mg PO Q6HR PRN #10 capsule PRN Reason: Anxiety Referrals: PRIMARY CARE, [Primary Care Provider] - 3-5 Days ARTHUR TY MD [Staff Physician] - 3-5 Days Time of Disposition: 12:53
[2018-05-25 13:24] VITALS: BP 169/92
== END 2018-05-25 13:24 | disposition home or self-care (01) ==
LOC: ED 09:23
DX: F41.9 Anxiety disorder, unspecified (principal); I10 Essential (primary) hypertension; Z90.710 Acquired absence of both cervix and uterus
CPT/HCPCS: 36415; 80053; 80307; 81001; 81025; 85027; 93005; 93010; Q0162; Q0177

== ENCOUNTER 2018-10-12 07:26 | Emergency (ER) | payer BC ==
[2018-10-12 07:33] VITALS: BP 157/93
[2018-10-12] MEDS ORDERED: NACL 0.9% 1000 ML 1,000 ML IV ONE (07:49)
[2018-10-12] MEDS ORDERED: TORADOL IV ONE (07:49)
--- NOTE | 2018-10-12 07:52 | Emergency Department Report ---
ED Abdominal Pain HPI - General Chief Complaint: Abdominal Pain Stated Complaint: (L) SIDE PAIN Source: patient Mode of arrival: Ambulatory Limitations: No Limitations - History of Present Illness Initial Comments: Since a 48-year-old female who presents to the emergency room with left-sided abdominal pain. Patient states she had a hysterectomy in April by Dr. Ty and been experiencing intermittent pain ever since. Patient states pain increased last night to sharp intermittent pain in a constant dull intensity. Patient states pain is nonradiating. She denies nausea, vomiting, diarrhea, vaginal bleeding, vaginal discharge, urinary frequency, urgency, or dysuria. MD Complaint: abdominal pain -: Last night Location: LUQ, LLQ Radiation: none Migration to: no migration Severity: severe Severity scale (0 -10): 8 Quality: sharp, dull Consistency: intermittent Improves With: nothing Worsens With: nothing Associated Symptoms: denies other symptoms - Related Data LMP Date: 04/29/18 Home Medications Medication Instructions Recorded Confirmed Last Taken hydroCHLOROthiazide [HCTZ] 25 mg PO DAILY 04/21/18 04/28/18 04/27/18 09:00 Previous Rx's Medication Instructions Recorded Last Taken Type Pantoprazole [Protonix TAB] 20 mg PO QDAY #30 tablet. 02/16/18 04/26/18 09:00 Rx amLODIPine [Norvasc] 10 mg PO DAILY #30 tab 02/16/18 04/28/18 04:00 Rx Docusate Sodium [Colace CAP] 100 mg PO BID PRN #30 capsule 04/30/18 Unknown Rx hydrOXYzine PAMOATE [Vistaril] 25 mg PO Q6HR PRN #10 capsule 05/25/18 Unknown Rx traMADol [Ultram 50 MG tab] 50 mg PO Q6HR PRN #12 tablet 10/12/18 Unknown Rx Allergies Allergy/AdvReac Type Severity Reaction Status Date / Time No Known Allergies Allergy Verified 10/12/18 07:31 ED Review of Systems ROS: Stated complaint: (L) SIDE PAIN Other details as noted in HPI Constitutional: denies: chills, fever Cardiovascular: denies: chest pain, palpitations Gastrointestinal: abdominal pain. denies: nausea, diarrhea Genitourinary: denies: urgency, dysuria, discharge Musculoskeletal: denies: back pain, joint swelling, arthralgia Skin: denies: rash, lesions Neurological: denies: headache, weakness, paresthesias Psychiatric: denies: anxiety, depression ED Past Medical Hx - Past Medical History Previous Medical History?: Yes Hx Hypertension: Yes (x 2yrs) Hx Congestive Heart Failure: No Hx Diabetes: No Hx GERD: Yes Hx Asthma: No Hx COPD: No Hx HIV: No Additional medical history: fibroids - Surgical History Past Surgical History?: Yes Hx Cholecystectomy: Yes Additional Surgical History: hysterectomy - Social History Smoking Status: Never Smoker Substance Use Type: Alcohol - Medications Home Medications: Home Medications Medication Instructions Recorded Confirmed Last Taken Type Pantoprazole [Protonix TAB] 20 mg PO QDAY #30 tablet. 02/16/18 04/28/18 04/26/18 09:00 Rx amLODIPine [Norvasc] 10 mg PO DAILY #30 tab 02/16/18 04/28/18 04/28/18 04:00 Rx hydroCHLOROthiazide [HCTZ] 25 mg PO DAILY 04/21/18 04/28/18 04/27/18 09:00 History Docusate Sodium [Colace CAP] 100 mg PO BID PRN #30 capsule 04/30/18 Unknown Rx hydrOXYzine PAMOATE [Vistaril] 25 mg PO Q6HR PRN #10 capsule 05/25/18 Unknown Rx traMADol [Ultram 50 MG tab] 50 mg PO Q6HR PRN #12 tablet 10/12/18 Unknown Rx ED Physical Exam - General Limitations: No Limitations General appearance: alert, in no apparent distress - Respiratory Respiratory exam: Present: normal lung sounds bilaterally. Absent: respiratory distress - Cardiovascular Cardiovascular Exam: Present: regular rate, normal rhythm. Absent: systolic murmur, diastolic murmur, rubs, gallop - GI/Abdominal GI/Abdominal exam: Present: soft, tenderness (left upper quadrant and left lower quadrant), guarding, normal bowel sounds. Absent: distended, rebound, rigid, organomegaly, mass, bruit, pulsatile mass, hernia - Back Exam Back exam: Absent: CVA tenderness (R), CVA tenderness (L) - Neurological Exam Neurological exam: Present: alert, oriented X3 - Psychiatric Psychiatric exam: Present: normal affect, normal mood - Skin Skin exam: Present: warm, dry, intact, normal color. Absent: rash ED Course Vital Signs 10/12/18 07:31 Temperature 97.9 F Pulse Rate 88 Respiratory 16 Rate Blood Pressure 157/93 O2 Sat by Pulse 97 Oximetry ED Medical Decision Making - Lab Data Result diagrams: 10/12/18 07:57 10/12/18 07:57 Lab Results 10/12/18 10/12/18 10/12/18 Range/Units 07:52 07:57 07:57 WBC 7.6 (4.5-11.0) K/mm3 RBC 5.38 H (3.65-5.03) M/mm3 Hgb 13.9 (10.1-14.3) gm/dl Hct 43.1 H (30.3-42.9) % MCV 80 (79-97) fl MCH 26 L (28-32) pg MCHC 32 (30-34) % RDW 22.5 H (13.2-15.2) % Plt Count 354 (140-440) K/mm3 Lymph % (Auto) 27.0 (13.4-35.0) % [place] % (Auto) 6.1 (0.0-7.3) % Eos % (Auto) 4.0 (0.0-4.3) % Baso % (Auto) 1.1 (0.0-1.8) % Lymph # 2.0 (1.2-5.4) K/mm3 [place] # 0.5 (0.0-0.8) K/mm3 Eos # 0.3 (0.0-0.4) K/mm3 Baso # 0.1 (0.0-0.1) K/mm3 Seg Neutrophils % 61.8 (40.0-70.0) % Seg Neutrophils # 4.7 (1.8-7.7) K/mm3 Sodium 145 (137-145) mmol/L Potassium 4.2 (3.6-5.0) mmol/L Chloride 100.9 (98-107) mmol/L Carbon Dioxide 28 (22-30) mmol/L Anion Gap 20 mmol/L BUN 7 (7-17) mg/dL Creatinine 0.5 L (0.7-1.2) mg/dL Estimated GFR > 60 ml/min BUN/Creatinine Ratio 14 % Glucose 107 H (65-100) mg/dL Calcium 9.1 (8.4-10.2) mg/dL Total Bilirubin 0.60 (0.1-1.2) mg/dL AST 58 H (5-40) units/L ALT 53 (7-56) units/L Alkaline Phosphatase 72 (35-129) units/L Total Protein 7.8 (6.3-8.2) g/dL Albumin 4.2 (3.9-5) g/dL Albumin/Globulin Ratio 1.2 % Lipase 47 (13-60) units/L Urine Color Yellow (Yellow) Urine Turbidity Cloudy (Clear) Urine pH 8.0 H (5.0-7.0) Ur Specific [place] 1.014 (1.003-1.030) Urine Protein <15 mg/dl (Negative) mg/dL Urine Glucose (UA) Neg (Negative) mg/dL Urine Ketones Neg (Negative) mg/dL Urine Blood Neg (Negative) Urine Nitrite Neg (Negative) Urine Bilirubin Neg (Negative) Urine Urobilinogen < 2.0 (<2.0) mg/dL Ur Leukocyte Esterase Neg (Negative) Urine WBC (Auto) < 1.0 (0.0-6.0) /HPF Urine RBC (Auto) 2.0 (0.0-6.0) /HPF U Epithel Cells (Auto) 2.0 (0-13.0) /HPF Urine Bacteria (Auto) 1+ (Negative) /HPF Amorphous Crystals Few Urine Mucus Few /HPF - Radiology Data Radiology results: report reviewed CT ABDOMEN PELVIS WITH CONTRAST: HISTORY: Left upper quadrant and left lower quadrant tenderness. COMPARISON: 04/22/18. TECHNIQUE: Helical CT in 1.25mm intervals following IV contrast. Sagittal and coronal reconstructions. FINDINGS: Lung bases: Normal. Liver: Mild diffuse fatty infiltration. No focal mass or enlargement. Biliary system: Cholecystectomy. No biliary dilatation. Pancreas: Normal. Spleen: Normal. Kidneys/ureters/bladder: Normal. Adrenal glands: Tiny bilateral hypodense adrenal nodules are identified measuring approximately 5 mm. These probably represent small adrenal adenomas. Aorta: Normal. Intestines: Within normal limits given no oral contrast was administered. Appendix: Not identified, correlate with surgical history. Pelvic viscera: Hysterectomy has been performed since the previous exam. No adnexal mass or cyst is identified. Ascites: None. Adenopathy: None. Musculoskeletal: Intact. IMPRESSION: No acute process is identified in the abdomen or pelvis. Mild hepatic steatosis. Surgical changes as described. Tiny bilateral adrenal nodules which probably represent incidental adrenal adenomas. - Medical Decision Making Patient was examined by me. Vitals are normal and patient is in no acute distress. Past medical history GERD and hypertension. Obtained a CBC, CMP, lipase, CT of abdomen and pelvis. There is elevation of liver enzymes. All of the labs are unremarkable. No acute process is identified in the abdomen or pelvis. Mild hepatic steatosis. Surgical changes as described. Tiny bilateral adrenal nodules which probably represent incidental adrenal adenomas. Patient informed of results. Instructed to stop taking NSAIDs. Follow-up with PCP Dr. Price for repeat CMP and possible ultrasound to reevaluate mild liver steatosis. Fontanelles are susceptible muscular abdominal pain. Start tramadol for pain. Plan discussed with patient to discharge home and treat outpatient. She agrees with ER plan. Patient discharged home in stable condition. Follow up with PCP in 2-3 days. Critical care attestation.: If time is entered above; I have spent that time in minutes in the direct care of this critically ill patient, excluding procedure time. ED Disposition Clinical Impression: Fatty liver Abdominal pain Qualifiers: Abdominal location: generalized Qualified Code(s): R10.84 - Generalized abdominal pain Abdominal muscle strain Qualifiers: Encounter type: initial encounter Qualified Code(s): S39.011A - Strain of muscle, fascia and tendon of abdomen, initial encounter Disposition: DC-01 TO HOME OR SELFCARE Is pt being admited?: No Does the pt Need Aspirin: No Condition: Stable Instructions: Abdominal Pain (ED), Muscle Strain (ED), Non-Alcoholic Fatty Liver Disease (ED) Additional Instructions: Follow-up with your primary care doctor, Dr. Price in a few days. Have him repeat CMP and possible ultrasound to reevaluate liver. stop taken ibuprofen or naproxen for pain. Start taking Tramadol every 6 hours as needed for pain. Return to the emergency room if worsening symptoms. Prescriptions: traMADol [Ultram 50 MG tab] 50 mg PO Q6HR PRN #12 tablet PRN Reason: Pain Referrals: SAMANTA PRICE MD [Primary Care Provider] - 3-5 Days Forms: Work/School Release Form(ED) Time of Disposition: 10:22
[2018-10-12 08:27] LABS: Basophils # (Auto) 0.1 K/mm3 (0.0-0.1); Basophils % (Auto) 1.1 % (0.0-1.8); Eosinophils # (Auto) 0.3 K/mm3 (0.0-0.4); Hematocrit 43.1 % (30.3-42.9); Hemoglobin 13.9 gm/dl (10.1-14.3); Mean Corpuscular HGB Conc 32 % (30-34); Mean Corpuscular Volume 80 fl (79-97); Monocytes # (Auto) 0.5 K/mm3 (0.0-0.8); Monocytes % (Auto) 6.1 % (0.0-7.3); Platelet Count 354 K/mm3 (140-440); Red Blood Count 5.38 M/mm3 (3.65-5.03)
[2018-10-12 08:28] LABS: Red Cell Distribution Width 22.5 % (13.2-15.2)
[2018-10-12 08:34] LABS: Albumin 4.2 g/dL (3.9-5); BUN/Creatinine Ratio 14; Blood Urea Nitrogen 7 mg/dL (7-17); Calcium 9.1 mg/dL (8.4-10.2); Hemolysis Index 125
[2018-10-12 08:41] LABS: Amorphous Crystals,Urine Few; Bacteria,Urine 1+ /HPF (Negative); Bilirubin,Urine NEG (Negative); Blood,Urine NEG (Negative); Color,Urine Yellow (Yellow); Mucus,Urine FEW /HPF; Protein,Urine <15 mg/dL mg/dL (Negative); Urobilinogen,Urine < 2.0 mg/dL (<2.0); WBC,Urine < 1.0 /HPF (0.0-6.0)
[2018-10-12 09:09] LABS: Alanine Aminotransferase 53 units/L (7-56)
--- NOTE | 2018-10-12 09:40 | Cat Scan Report ---
CT ABDOMEN PELVIS WITH CONTRAST: HISTORY: Left upper quadrant and left lower quadrant tenderness. COMPARISON: 04/22/18. TECHNIQUE: Helical CT in 1.25mm intervals following IV contrast. Sagittal and coronal reconstructions. FINDINGS: Lung bases: Normal. Liver: Mild diffuse fatty infiltration. No focal mass or enlargement. Biliary system: Cholecystectomy. No biliary dilatation. Pancreas: Normal. Spleen: Normal. Kidneys/ureters/bladder: Normal. Adrenal glands: Tiny bilateral hypodense adrenal nodules are identified measuring approximately 5 mm. These probably represent small adrenal adenomas. Aorta: Normal. Intestines: Within normal limits given no oral contrast was administered. Appendix: Not identified, correlate with surgical history. Pelvic viscera: Hysterectomy has been performed since the previous exam. No adnexal mass or cyst is identified. Ascites: None. Adenopathy: None. Musculoskeletal: Intact. IMPRESSION: No acute process is identified in the abdomen or pelvis. Mild hepatic steatosis. Surgical changes as described. Tiny bilateral adrenal nodules which probably represent incidental adrenal adenomas.
== END 2018-10-12 10:44 | disposition home or self-care (01) ==
LOC: ED 07:26
DX: S39.011A Strain of muscle, fascia and tendon of abdomen, initial encounter (principal); K76.0 Fatty (change of) liver, not elsewhere classified; I10 Essential (primary) hypertension; K21.9 Gastro-esophageal reflux disease without esophagitis; Z90.49 Acquired absence of other specified parts of digestive tract; X58.XXXA Exposure to other specified factors, initial encounter; Y93.89 Activity, other specified; Y92.89 Other specified places as the place of occurrence of the external cause; Y99.8 Other external cause status
CPT/HCPCS: 36415; 74177; 80053; 81001; 83690; 85025; 96374; 99284; J1885; J7030; Q9967

== ENCOUNTER 2018-10-14 07:40 | Emergency (ER) | payer BC ==
[2018-10-14 07:45] VITALS: BP 164/80
--- NOTE | 2018-10-14 08:45 | Emergency Department Report ---
ED Female HPI - General Chief complaint: Urogenital-Female Stated complaint: L LOWER PELVIC PAIN Time Seen by Provider: 10/14/18 08:06 Source: patient Mode of arrival: Ambulatory Limitations: No Limitations - History of Present Illness Initial comments: 48-year-old Afro-[place] female to emergency Department complaining of continued left lower quadrant/adnexal pain, which is been going on since April 2018. She she reports having a hysterectomy by Dr. Ty in April. Since that time, having some left adnexal pain that is becoming more frequent in the last month. Intensity has also increased. She reports no vaginal bleeding or vaginal discharge. No fever, chills, sweats, nausea no vomiting no chest pain or palpitations. She denies any known trauma. MD Complaint: pelvic pain Severity: mild Quality: dull Consistency: constant Improves with: none Worsens with: none Are you Now?: No Associated Symptoms: denies: vaginal discharge, vaginal bleeding, abdominal pain, loss of appetite, dysuria, hematuria, shortness of breath, syncope - Related Data Sexually active: No Home Medications Medication Instructions Recorded Confirmed Last Taken hydroCHLOROthiazide [HCTZ] 25 mg PO DAILY 04/21/18 04/28/18 04/27/18 09:00 Previous Rx's Medication Instructions Recorded Last Taken Type Pantoprazole [Protonix TAB] 20 mg PO QDAY #30 tablet. 02/16/18 04/26/18 09:00 Rx amLODIPine [Norvasc] 10 mg PO DAILY #30 tab 02/16/18 04/28/18 04:00 Rx Docusate Sodium [Colace CAP] 100 mg PO BID PRN #30 capsule 04/30/18 Unknown Rx hydrOXYzine PAMOATE [Vistaril] 25 mg PO Q6HR PRN #10 capsule 05/25/18 Unknown Rx traMADol [Ultram 50 MG tab] 50 mg PO Q6HR PRN #12 tablet 10/12/18 Unknown Rx Ketorolac [Toradol] 10 mg PO Q6H PRN #14 tablet 10/14/18 Unknown Rx Allergies Allergy/AdvReac Type Severity Reaction Status Date / Time No Known Allergies Allergy Verified 10/14/18 07:43 ED Review of Systems ROS: Stated complaint: L LOWER PELVIC PAIN Other details as noted in HPI Constitutional: denies: chills, fever Eyes: denies: eye pain, eye discharge, vision change ENT: denies: ear pain, throat pain Respiratory: denies: cough, shortness of breath, wheezing Cardiovascular: denies: chest pain, palpitations Endocrine: no symptoms reported Gastrointestinal: denies: abdominal pain, nausea, diarrhea Genitourinary: denies: urgency, dysuria, discharge Musculoskeletal: denies: back pain, joint swelling, arthralgia Skin: denies: rash, lesions Neurological: denies: headache, weakness, paresthesias Psychiatric: denies: anxiety, depression Hematological/Lymphatic: denies: easy bleeding, easy bruising ED Past Medical Hx - Past Medical History Hx Hypertension: Yes Hx Congestive Heart Failure: No Hx Diabetes: No Hx GERD: Yes Hx Asthma: No Hx COPD: No Hx HIV: No Additional medical history: fibroids - Surgical History Hx Cholecystectomy: Yes Additional Surgical History: hysterectomy - Social History Smoking Status: Never Smoker Substance Use Type: None - Medications Home Medications: Home Medications Medication Instructions Recorded Confirmed Last Taken Type Pantoprazole [Protonix TAB] 20 mg PO QDAY #30 tablet. 02/16/18 04/28/18 04/26/18 09:00 Rx amLODIPine [Norvasc] 10 mg PO DAILY #30 tab 02/16/18 04/28/18 04/28/18 04:00 Rx hydroCHLOROthiazide [HCTZ] 25 mg PO DAILY 04/21/18 04/28/18 04/27/18 09:00 History Docusate Sodium [Colace CAP] 100 mg PO BID PRN #30 capsule 04/30/18 Unknown Rx hydrOXYzine PAMOATE [Vistaril] 25 mg PO Q6HR PRN #10 capsule 05/25/18 Unknown Rx traMADol [Ultram 50 MG tab] 50 mg PO Q6HR PRN #12 tablet 10/12/18 Unknown Rx Ketorolac [Toradol] 10 mg PO Q6H PRN #14 tablet 10/14/18 Unknown Rx ED Physical Exam - General Limitations: No Limitations General appearance: alert, in no apparent distress - Head Head exam: Present: atraumatic, normocephalic - Eye Eye exam: Present: normal appearance, PERRL, EOMI Pupils: Present: normal accommodation - ENT ENT exam: Present: normal exam, mucous membranes moist - Neck Neck exam: Present: normal inspection, full ROM - Respiratory Respiratory exam: Present: normal lung sounds bilaterally. Absent: respiratory distress, wheezes, rales, rhonchi, chest wall tenderness, accessory muscle use, decreased breath sounds - Cardiovascular Cardiovascular Exam: Present: regular rate, normal rhythm. Absent: systolic murmur, diastolic murmur, rubs, gallop - GI/Abdominal GI/Abdominal exam: Present: soft, tenderness (left adnexal region. No masses apparent with palpation.), normal bowel sounds. Absent: guarding, hyperactive bowel sounds, hypoactive bowel sounds, organomegaly, mass - Extremities Exam Extremities exam: Present: normal inspection - Back Exam Back exam: Present: normal inspection - Neurological Exam Neurological exam: Present: alert, oriented X3 - Psychiatric Psychiatric exam: Present: normal affect, normal mood - Skin Skin exam: Present: warm, dry, intact, normal color. Absent: rash ED Course Vital Signs 10/14/18 07:43 Temperature 97.8 F Pulse Rate 87 Respiratory 18 Rate Blood Pressure 164/80 O2 Sat by Pulse 100 Oximetry ED Medical Decision Making - Medical Decision Making 40-year-old female 6 months status post hysterectomy with continued left adnexa pain. According to ultrasound has a complex ovarian mass. Discussed with her the importance of following up with her [employer] for definitive management of this mass. The meantime will take pain medications for control and judgment department should experience any bleeding, fever, severe worsening pain that is not responding to medication Critical care attestation.: If time is entered above; I have spent that time in minutes in the direct care of this critically ill patient, excluding procedure time. ED Disposition Clinical Impression: Status post total abdominal hysterectomy, Ovarian mass, left, Pelvic pain Disposition: TO HOME OR SELFCARE Is pt being admited?: No Does the pt Need Aspirin: No Condition: Stable Instructions: Ovarian Cyst (ED), Pelvic Ultrasound (GEN), Chronic Pelvic Pain in Women (ED) Prescriptions: Ketorolac [Toradol] 10 mg PO Q6H PRN #14 tablet PRN Reason: Pain Referrals: ARTHUR TY MD [Staff Physician] - 3-5 Days
[2018-10-14 09:01] LABS: Bilirubin,Urine NEG (Negative); Blood,Urine NEG (Negative); Hyaline Casts,Urine 13 /LPF; Mucus,Urine 3+ /HPF
[2018-10-14 09:07] LABS: Color,Urine Yellow (Yellow)
--- NOTE | 2018-10-14 10:44 | Ultrasound Report ---
Pelvic and Transvaginal sonography: History left adnexa and left pelvic pain. Findings: Uterus measures 3.3 x 1.6 x 2.7 cm. Complex mass adjacent to 1.5 Cm follicle is identified in the left ovary. There is fluid noted in the cul-de-sac. Right ovary measures 2.4 x 1.8 x 2.2 cm. Complex mass is identified the right ovary measuring 2.4 cm. Impression: Complex mass is identified it left ovary. Recommend followup examination or further evaluation.
[2018-10-14] MEDS ORDERED: IBUPROFEN PO STA (10:59)
[2018-10-14] MEDS ORDERED: IBUPROFEN ONE (11:02)
== END 2018-10-14 11:05 | disposition home or self-care (01) ==
LOC: EEVIPCON 07:40 → ED 07:40
DX: N83.9 Noninflammatory disorder of ovary, fallopian tube and broad ligament, unspecified (principal); R10.2 Pelvic and perineal pain; Z90.710 Acquired absence of both cervix and uterus; I10 Essential (primary) hypertension; K21.9 Gastro-esophageal reflux disease without esophagitis
CPT/HCPCS: 76830; 76856; 81001

== ENCOUNTER 2019-02-17 06:37 | Outpatient (CLI) | payer BC ==
[2019-02-17 06:55] LABS: Hematocrit 44.1 % (30.3-42.9); Hemoglobin 14.5 gm/dl (10.1-14.3); Mean Corpuscular HGB Conc 33 % (30-34); Mean Corpuscular Volume 89 fl (79-97); Platelet Count 243 K/mm3 (140-440); Red Blood Count 4.97 M/mm3 (3.65-5.03); Red Cell Distribution Width 14.5 % (13.2-15.2)
[2019-02-17 07:12] LABS: Alanine Aminotransferase 39 units/L (7-56); Albumin 4.5 g/dL (3.9-5); BUN/Creatinine Ratio 20; Blood Urea Nitrogen 12 mg/dL (7-17); Calcium 9.3 mg/dL (8.4-10.2); Chol/HDL Ratio 3.28 %; HDL Cholesterol 63 mg/dL (40-59); Hemolysis Index 2; LDL Cholesterol,Direct 144 mg/dL (50-130)
[2019-02-23 13:48] LABS: Vitamin D, 25-OH, D2 <4 ng/mL
== END 2019-02-17 06:38 | disposition home or self-care (01) ==
LOC: LAB 06:37
DX: Z00.00 Encounter for general adult medical examination without abnormal findings (principal); K21.9 Gastro-esophageal reflux disease without esophagitis; I10 Essential (primary) hypertension; Z90.49 Acquired absence of other specified parts of digestive tract; Z90.710 Acquired absence of both cervix and uterus
CPT/HCPCS: 36415; 80053; 80061; 82306; 84443; 85027

== ENCOUNTER 2019-05-03 07:06 | Outpatient (CLI) | payer BC ==
--- NOTE | 2019-05-03 09:35 | Mammography Report ---
DIGITAL SCREENING MAMMOGRAM WITH CAD, 05/03/2019 INDICATION: Routine screening mammography. TECHNIQUE: Digital bilateral 2D mammography was obtained in the craniocaudal and mediolateral obliq ue projections. This examination was interpreted with the benefit of Computer-Aided Detection analysi s. COMPARISON: 05/14/2017 FINDINGS: Breast Density: There are scattered areas of fibroglandular density. Bilateral parenchymal asymmetries require additional imaging. No architectural distortion or suspicio us calcifications. IMPRESSION: Bilateral asymmetries requiring additional imaging. Recommend recall for bilateral latera l and spot compression MLO, right spot compression CC views and bilateral breast ultrasound if needed . Follow up recommendation: Special View: Spot Category 0: Incomplete. Needs additional imaging evaluation and/or prior mammograms for comparison. A "normal" or negative report should not discourage follow up or biopsy of a clinically significant f inding. A written summary of these findings will be mailed to the patient. The patient will be entered into a mammography reporting system which will generate a reminder letter for the patient's next appointmen t at the appropriate interval. The [employer] recommends yearly mammograms starting at age 40 and continuing as l kyle as a woman is in good health. Breast MRI is recommended for women with an approximate 20-25% or greater lifetime risk of breast cancer, including women with a strong family history of breast or ova malcom cancer or who have been treated for Hodgkin's disease. Signer Name: Michael Stanford MD Signed: 05/03/2019 9:30 AM Workstation Name: [id number]
== END 2019-05-03 07:07 | disposition home or self-care (01) ==
LOC: MAMMO 07:06
PROVIDERS: ATTEND Internal Medicine
DX: Z12.31 Encounter for screening mammogram for malignant neoplasm of breast (principal)
CPT/HCPCS: 77067

== ENCOUNTER 2019-05-06 10:55 | Outpatient (CLI) | payer BC ==
--- NOTE | 2019-05-06 11:55 | Mammography Report ---
DIGITAL BILATERAL DIAGNOSTIC MAMMOGRAM WITH CAD, 05/06/2019 INDICATION: 793.80 recall to evaluate bilateral asymmetries. TECHNIQUE: Digital bilateral mammographic imaging was performed. Spot compression views were obtaine d. This examination was interpreted with the benefit of Computer-aided Detection analysis. COMPARISON: 05/03/2019 Breast Density: The breasts are heterogeneously dense, which may obscure small masses. FINDINGS: Bilateral ML and spot compression views were performed and are negative. Satisfactory effac ement of asymmetries. IMPRESSION: No mammographic evidence of malignancy. Follow up recommendation: Routine BI-RADS Category 1: Negative. A "normal" or negative report should not discourage follow up or biopsy of a clinically significant f inding. A written summary of these findings will be mailed to the patient. The patient will be entered into a mammography reporting system which will generate a reminder letter for the patient's next appointmen t at the appropriate interval. According to the [employer], yearly mammograms are recommended starting at age 40 and continuing as long as a woman is in good health. Breast MRI is recommended for women with an linda roximately 20-25% or greater lifetime risk of breast cancer, including women with a strong family his tory of breast or ovarian cancer and women who have been treated for Hodgkin's disease. Signer Name: Michael Stanford MD Signed: 05/06/2019 11:51 AM Workstation Name: [id number]
== END 2019-05-06 10:56 | disposition home or self-care (01) ==
LOC: MAMMO 10:55
PROVIDERS: ATTEND Internal Medicine
DX: R92.2 Inconclusive mammogram (principal); R92.8 Other abnormal and inconclusive findings on diagnostic imaging of breast
CPT/HCPCS: 77066

== ENCOUNTER 2020-10-12 10:29 | Outpatient (CLI) | payer OTHER ==
--- NOTE | 2020-10-12 12:57 | Mammography Report ---
DIGITAL SCREENING MAMMOGRAM WITH CAD, 10/12/2020 CLINICAL INFORMATION / INDICATION: Routine screening mammography. SCRN MAMMO TECHNIQUE: Digital bilateral 2D mammography was obtained in the craniocaudal and mediolateral obliqu e projections. This examination was interpreted with the benefit of Computer-Aided Detection analysis . COMPARISON: 05/01/2017 through 05/03/2019. FINDINGS: Breast Density: There are scattered areas of fibroglandular density. No dominant mass, suspicious calcifications, or architectural distortion in either breast. IMPRESSION: No mammographic evidence of malignancy. Follow up recommendation: Routine yearly BI-RADS Category 1: Negative. A "normal" or negative report should not discourage follow up or biopsy of a clinically significant f inding. A written summary of these findings will be mailed to the patient. The patient will be entered into a mammography reporting system which will generate a reminder letter for the patient's next appointmen t at the appropriate interval. The [employer] recommends yearly mammograms starting at age 40 and continuing as l kyle as a woman is in good health. Breast MRI is recommended for women with an approximate 20-25% or greater lifetime risk of breast cancer, including women with a strong family history of breast or ova malcom cancer or who have been treated for Hodgkin's disease. Signer Name: Chucky Hills MD Signed: 10/12/2020 12:53 PM Workstation Name: [id number]
== END 2020-10-12 10:30 | disposition home or self-care (01) ==
LOC: MAMMO 10:29 → EEVIPCON 10:29 → MAMMO 10:30
PROVIDERS: ATTEND Internal Medicine
DX: Z12.31 Encounter for screening mammogram for malignant neoplasm of breast (principal)
CPT/HCPCS: 77067